=== PATIENT | male | born 1960 | race African-American/Black ===

== ENCOUNTER 2017-09-20 08:55 | Emergency (ER) | payer SELFPAY ==
[~2017-09-20] VITALS: Ht 165.1 cm; Wt 61.0 kg
[2017-09-20] MEDS ORDERED: KETOROLAC 60MG/2ML VIAL IM ONE (14:00)
[2017-09-20 14:27] VITALS: BP 162/74
== END 2017-09-20 14:24 | disposition home or self-care (01) ==
LOC: ER 09:19
DX: M25.512 Pain in left shoulder (principal); W01.0XXA Fall on same level from slipping, tripping and stumbling without subsequent striking against object, initial encounter; Z91.81 History of falling; Y93.89 Activity, other specified; Y92.89 Other specified places as the place of occurrence of the external cause; Y99.0 Civilian activity done for income or pay
CPT/HCPCS: 73030; 99284; A4565

== ENCOUNTER 2018-03-17 18:29 | Emergency (ER) | payer SELFPAY ==
[~2018-03-17] VITALS: Ht 170.2 cm; Wt 60.0 kg
[2018-03-17] MEDS ORDERED: LEVETIRACETAM 500MG PREMIX 100 ML IV ONE (19:15)
[2018-03-17 20:47] LABS: BASOPHILS % 0.4 % (0.0-2.0); EOSINOPHILS % 0.8 % (0.0-5.0); HEMOGLOBIN. 15.2 g/dL (14.0-18.0); LYMPHOCYTES % 27.7 % (20.0-50.0); MEAN CORPUSCULAR HEMOGLOBIN 27.2 pg (28.0-32.0); MEAN CORPUSCULAR VOLUME 82.2 fL (80.0-94.0); MEAN PLATELET VOLUME 9.1 fl (7.4-10.4); MONOCYTES % 7.5 % (2.0-8.0); NEUTROPHILS % 63.6 % (40.0-76.0); PLATELET 287 x1000/uL (130-400); RED BLOOD CELL COUNT 5.59 mill/uL (4.7-6.1); RED CELL DISTRIBUTION WIDTH 16.2 % (11.6-14.6)
[2018-03-17 20:53] LABS: CHLORIDE 102 mEq/L (98-107)
[2018-03-17 20:58] LABS: PARTIAL THROMBOPLASTIN TIME 27.3 sec (23.4-31.0); PROTHROMBIN TIME 9.9 sec (9.1-11.1)
[2018-03-17] MEDS ORDERED: DEXAMETHASONE 10 MG/ML VIAL IV ONE (21:30)
[2018-03-17 23:57] VITALS: BP 127/67
== END 2018-03-18 00:25 | disposition short-term general hospital (02) ==
LOC: ER 20:09 → CANBEDREQ 03-18 01:20
DX: G93.9 Disorder of brain, unspecified (principal); R53.1 Weakness; R60.0 Localized edema; M19.90 Unspecified osteoarthritis, unspecified site; Z87.891 Personal history of nicotine dependence
CPT/HCPCS: 36415; 70450; 71045; 80053; 84484; 85025; 85610; 85730; 93005; 96365; 96375; 99291; J1100; J1953

== ENCOUNTER 2022-10-01 11:59 | Inpatient (IN) | payer OTHER ==
[2022-10-01] VITALS (38 sets, daily range): BP systolic 85–132; BP diastolic 28–79
[~2022-10-01] VITALS: Ht 162.6 cm; Wt 44.9 kg
[2022-10-01] MEDS ORDERED: PIPERACILLIN/TAZ 3.375G PREMIX 50 ML IV ONE (12:15)
[2022-10-01] MEDS ORDERED: VANCOMYCIN 1G PREMIX 200 ML IV ONE (12:15)
[2022-10-01] MEDS ORDERED: SODIUM CHLORIDE 0.9% 1000ML BAG (SEPSIS BOLUS) IV ONE (12:15)
[2022-10-01 12:42] LABS: HEMATOCRIT. 35.3 % (42.0-52.0); MEAN CORPUSCULAR HEMOGLOBIN 27.8 pg (28.0-32.0); MEAN CORPUSCULAR VOLUME 81.9 fL (80.0-94.0); PLATELET 474 x1000/uL (130-400)
[2022-10-01 12:43] LABS: CLARITY URINE CLOUDY (CLEAR); COLOR URINE YELLOW (YELLOW); KETONES URINE 1+ (NEGATIVE); LEUKOCYTE ESTERASE URINE NEGATIVE (NEGATIVE); NITRITE URINE NEGATIVE (NEGATIVE); OCCULT BLOOD URINE 2+ (NEGATIVE); PH URINE 6.5 (4.5-8.0); PROTEIN URINE 2+ (NEGATIVE); SPECIFIC GRAVITY URINE 1.015 (1.005-1.030)
[2022-10-01] MEDS ORDERED: FENTANYL 2500MCG/250ML PMX 250 ML IV ONE ×2 (12:45)
[2022-10-01] MEDS ORDERED: FENTANYL CITRATE/PF 50MCG/ML 2ML VIAL IV ONE (12:45)
[2022-10-01] MEDS ORDERED: MIDAZOLAM HCL 100 MG in DEXT 5% WATER 80 ML IV ONE (12:45)
[2022-10-01] MEDS ORDERED: MIDAZOLAM HCL 100 MG in SODIUM CHLORIDE 0.9% 100 ML IV PRN (12:45)
[2022-10-01] MEDS ORDERED: ETOMIDATE 2MG/ML 10ML VIAL IV ONE (12:45)
[2022-10-01] MEDS ORDERED: SUCCINYLCHOLINE CHLORIDE 200MG/10ML IV ONE (12:45)
[2022-10-01 12:51] LABS: PROTHROMBIN TIME 10.5 sec (9.6-11.0)
[2022-10-01 13:06] LABS: BG BASE EXCESS -0.3 mmol/L (-2.0-2.0); BG DEOXYHEMOGLOBIN 1.2 % (0.0-5.0); BG FRACTION INSPIRED OXYGEN 100; BG HCO3 ACT 28.4 mmol/L (22.0-26.0); BG METHEMOGLOBIN 0.1 % (0.0-1.5); BG OXYGEN SATURATION 98.8 % (92.0-98.5); BG OXYHEMOGLOBIN 98.7 % (94.0-97.0); BG PCO2 69.1 mmHg (35.0-45.0); BG PH 7.232 (7.350-7.450); BG PO2 168.6 mmHg (75.0-100.0); BG SAMPLE SITE RIGHT RADIAL; BG TOTAL RESPIRATORY RATE 26 b/min; BG VENT MODE VENT - AC
[2022-10-01 13:18] LABS: PLATELET ESTIMATE INCREASED
[2022-10-01 13:28] LABS: CHLORIDE 97 mEq/L (98-107)
[2022-10-01] MEDS ORDERED: NOREPINEPHRINE 8MG/250ML PMX 250 ML IV STA (13:57)
[2022-10-01] MEDS ORDERED: ACETAMINOPHEN 325MG TABLET PO PRN (14:15)
[2022-10-01] MEDS ORDERED: DOCUSATE SODIUM 100MG CAPSULE PO PRN (14:15)
[2022-10-01] MEDS ORDERED: ONDANSETRON HCL 4MG/2ML INJ IV PRN (14:15)
[2022-10-01] MEDS ORDERED: IPRATROPIUM/ALBUTEROL 0.5-3(2.5)MG/3ML NEB HHN PRN (14:45)
[2022-10-01] MEDS ORDERED: MIDAZOLAM HCL 100 MG in SODIUM CHLORIDE 0.9% 80 ML IV PRN (15:00)
[2022-10-01] MEDS ORDERED: NOREPINEPHRINE 32 MG in DEXT 5% WATER 218 ML IV PRN (15:00)
[2022-10-01] MEDS ORDERED: FENTANYL 2500MCG/250ML PMX 250 ML IV PRN (15:00)
[2022-10-01 16:51] LABS: BG BASE EXCESS 6.6 mmol/L (-2.0-2.0); BG CARBOXYHEMOGLOBIN 0.3 % (0.5-1.5); BG DEOXYHEMOGLOBIN 2.1 % (0.0-5.0); BG FRACTION INSPIRED OXYGEN 80; BG METHEMOGLOBIN 0.2 % (0.0-1.5); BG OXYGEN SATURATION 97.9 % (92.0-98.5); BG OXYHEMOGLOBIN 97.4 % (94.0-97.0); BG PCO2 38.6 mmHg (35.0-45.0); BG PH 7.509 (7.350-7.450); BG PO2 97.7 mmHg (75.0-100.0); BG SAMPLE SITE RIGHT RADIAL; BG TOTAL HEMOGLOBIN 10.7 g/dL (12.0-18.0); BG VENT MODE VENT - AC
[2022-10-01] MEDS: PANTOPRAZOLE SODIUM 40 MG/VIAL IV SCH (17:38)
[2022-10-01] MEDS: DEXT 5%/0.45% NACL 1000ML 1,000 ML IV SCH (17:39)
[2022-10-01] MEDS: ENOXAPARIN 30MG/0.3ML SYR SUBCUT SCH (17:39)
[2022-10-01] MEDS ORDERED: PIPERACILLIN/TAZOBACTAM 3.375 G in DEXTROSE 5% WATER 50 ML IV SCH (20:00)
[2022-10-01] MEDS: IPRATROPIUM/ALBUTEROL 0.5-3(2.5)MG/3ML NEB HHN SCH (20:41)
[2022-10-01] MEDS: PIPERACILLIN/TAZOBACTAM 3.375 G in DEXTROSE 5% WATER 50 ML IV SCH (22:05)
[2022-10-01] MEDS ORDERED: VANCOMYCIN 750MG PREMIX 150 ML IV SCH (23:00)
[2022-10-01] MEDS: VANCOMYCIN 750MG PREMIX 150 ML IV SCH (23:56)
[2022-10-02] VITALS (96 sets, daily range): BP systolic 76–133; BP diastolic 36–98
[2022-10-02] MEDS: IPRATROPIUM/ALBUTEROL 0.5-3(2.5)MG/3ML NEB HHN SCH ×4 (02:10→20:39)
[2022-10-02] MEDS: NOREPINEPHRINE 32 MG in DEXT 5% WATER 218 ML IV PRN (02:30)
[2022-10-02] MEDS: DEXT 5%/0.45% NACL 1000ML 1,000 ML IV SCH ×2 (03:42→17:39)
[2022-10-02] MEDS: MIDAZOLAM HCL 100 MG in SODIUM CHLORIDE 0.9% 80 ML IV PRN (04:28)
[2022-10-02 06:06] LABS: BASOPHILS % 0.3 % (0.0-2.0); EOSINOPHILS % 0.1 % (0.0-5.0); HEMATOCRIT. 28.5 % (42.0-52.0); HEMOGLOBIN. 9.5 g/dL (14.0-18.0); LYMPHOCYTES % 13.4 % (20.0-50.0); MEAN CORPUSCULAR HEMOGLOBIN 27.1 pg (28.0-32.0); MEAN PLATELET VOLUME 7.9 fl (7.4-10.4); MONOCYTES % 8.2 % (2.0-8.0); PLATELET 415 x1000/uL (130-400); RED BLOOD CELL COUNT 3.51 mill/uL (4.7-6.1); RED CELL DISTRIBUTION WIDTH 15.4 % (11.6-14.6)
[2022-10-02] MEDS: PIPERACILLIN/TAZOBACTAM 3.375 G in DEXTROSE 5% WATER 50 ML IV SCH ×3 (06:20→22:28)
[2022-10-02 06:51] LABS: CHLORIDE 101 mEq/L (98-107)
[2022-10-02 07:04] LABS: HDL CHOLESTEROL 68 mg/dL (40-59); LDL CHOLESTEROL 48 mg/dL (5-100)
[2022-10-02] MEDS: PANTOPRAZOLE SODIUM 40 MG/VIAL IV SCH (08:28)
[2022-10-02 08:38] LABS: BG BASE EXCESS 7.1 mmol/L (-2.0-2.0); BG CARBOXYHEMOGLOBIN 0.3 % (0.5-1.5); BG DEOXYHEMOGLOBIN 0.6 % (0.0-5.0); BG FRACTION INSPIRED OXYGEN 70; BG HCO3 ACT 30.1 mmol/L (22.0-26.0); BG METHEMOGLOBIN 0.3 % (0.0-1.5); BG OXYGEN SATURATION 99.4 % (92.0-98.5); BG OXYHEMOGLOBIN 98.8 % (94.0-97.0); BG PCO2 36.8 mmHg (35.0-45.0); BG PH 7.531 (7.350-7.450); BG SAMPLE SITE RIGHT RADIAL; BG TOTAL HEMOGLOBIN 10.4 g/dL (12.0-18.0); BG TOTAL RESPIRATORY RATE 22 b/min; BG VENT MODE VENT - AC
[2022-10-02] MEDS ORDERED: POTASSIUM CHLORIDE INJ 40 MEQ in DEXT 5% WATER 250 ML IV ONE ×2 (10:30→13:15)
[2022-10-02] MEDS: VANCOMYCIN 750MG PREMIX 150 ML IV SCH ×2 (10:49→23:07)
[2022-10-02] MEDS: KCL 20MEQ/100ML X 2 FOR TOTAL KCL 40MEQ/200ML IV SCH ×4 (10:49→17:39)
[2022-10-02] MEDS: ENOXAPARIN 30MG/0.3ML SYR SUBCUT SCH (15:30)
[2022-10-02] MEDS ORDERED: FENTANYL 2500MCG/250ML PMX 250 ML IV PRN (23:30)
[2022-10-03] VITALS (97 sets, daily range): BP systolic 57–180; BP diastolic 31–103
[2022-10-03] MEDS: IPRATROPIUM/ALBUTEROL 0.5-3(2.5)MG/3ML NEB HHN SCH ×5 (01:43→20:54)
[2022-10-03] MEDS: NOREPINEPHRINE 32 MG in DEXT 5% WATER 218 ML IV PRN (02:42)
[2022-10-03] MEDS: MIDAZOLAM HCL 100 MG in SODIUM CHLORIDE 0.9% 80 ML IV PRN (02:43)
[2022-10-03 06:04] LABS: CHLORIDE 101 mEq/L (98-107)
[2022-10-03 06:05] LABS: BASOPHILS % 0.1 % (0.0-2.0); EOSINOPHILS % 0.3 % (0.0-5.0); HEMATOCRIT. 26.8 % (42.0-52.0); HEMOGLOBIN. 9.2 g/dL (14.0-18.0); LYMPHOCYTES % 8.6 % (20.0-50.0); MEAN CORPUSCULAR HEMOGLOBIN 27.6 pg (28.0-32.0); MEAN CORPUSCULAR VOLUME 80.5 fL (80.0-94.0); MEAN PLATELET VOLUME 7.2 fl (7.4-10.4); MONOCYTES % 8.5 % (2.0-8.0); NEUTROPHILS % 82.5 % (40.0-76.0); PLATELET 434 x1000/uL (130-400); RED BLOOD CELL COUNT 3.32 mill/uL (4.7-6.1); RED CELL DISTRIBUTION WIDTH 15.3 % (11.6-14.6)
[2022-10-03] MEDS: PIPERACILLIN/TAZOBACTAM 3.375 G in DEXTROSE 5% WATER 50 ML IV SCH ×3 (06:42→22:33)
[2022-10-03] MEDS: DEXT 5%/0.45% NACL 1000ML 1,000 ML IV SCH ×2 (06:42→20:08)
[2022-10-03 08:24] LABS: BG BASE EXCESS 8.7 mmol/L (-2.0-2.0); BG CARBOXYHEMOGLOBIN 0.3 % (0.5-1.5); BG FRACTION INSPIRED OXYGEN 40; BG METHEMOGLOBIN 0.3 % (0.0-1.5); BG OXYHEMOGLOBIN 98.4 % (94.0-97.0); BG PCO2 50.8 mmHg (35.0-45.0); BG PH 7.443 (7.350-7.450); BG PO2 162.2 mmHg (75.0-100.0); BG SAMPLE SITE RIGHT RADIAL; BG TOTAL HEMOGLOBIN 9.8 g/dL (12.0-18.0); BG VENT MODE VENT - AC
[2022-10-03] MEDS: PANTOPRAZOLE SODIUM 40 MG/VIAL IV SCH (09:25)
[2022-10-03] MEDS: VANCOMYCIN 500MG PREMIX 100 ML IV SCH ×2 (11:02→18:11)
[2022-10-03 13:19] LABS: BG BASE EXCESS 8.5 mmol/L (-2.0-2.0); BG CARBOXYHEMOGLOBIN 0.3 % (0.5-1.5); BG DEOXYHEMOGLOBIN 1.1 % (0.0-5.0); BG FRACTION INSPIRED OXYGEN 40; BG HCO3 ACT 33.7 mmol/L (22.0-26.0); BG OXYGEN SATURATION 98.9 % (92.0-98.5); BG OXYHEMOGLOBIN 98.6 % (94.0-97.0); BG PCO2 49.7 mmHg (35.0-45.0); BG PH 7.449 (7.350-7.450); BG PO2 150.5 mmHg (75.0-100.0); BG SAMPLE SITE RIGHT RADIAL; BG TOTAL HEMOGLOBIN 10.6 g/dL (12.0-18.0); BG VENT MODE VENT - CPAP
[2022-10-03] MEDS: ENOXAPARIN 30MG/0.3ML SYR SUBCUT SCH (14:47)
[2022-10-03] MEDS ORDERED: THROAT LOZENGES-BENZOCAINE/MENTH/CETYLPYRD CL LOZENGES MM PRN (16:30)
[2022-10-03] MEDS ORDERED: CHOL100046 (19:14)
[2022-10-03] MEDS ORDERED: BACL-141 MT (19:14)
[2022-10-03] MEDS ORDERED: IPRA3AMP9 HHN (19:14)
[2022-10-03] MEDS ORDERED: AMLO10TA4 MT (19:14)
[2022-10-03] MEDS ORDERED: ALBU2.5V13 NEB (19:14)
[2022-10-03] MEDS ORDERED: DULO60CA64 MT (19:26)
[2022-10-03] MEDS: DULOXETINE HCL 60MG DR CAPSULE PO SCH (20:37)
[2022-10-03] MEDS: BACLOFEN 10MG TABLET PO SCH (22:53)
[2022-10-04] VITALS (62 sets, daily range): BP systolic 60–169; BP diastolic 28–98
[2022-10-04] MEDS: VANCOMYCIN 500MG PREMIX 100 ML IV SCH ×4 (00:59→22:23)
[2022-10-04] MEDS: IPRATROPIUM/ALBUTEROL 0.5-3(2.5)MG/3ML NEB HHN SCH ×4 (02:01→20:19)
[2022-10-04 05:25] LABS: BASOPHILS % 0.5 % (0.0-2.0); EOSINOPHILS % 0.7 % (0.0-5.0); HEMATOCRIT. 27.8 % (42.0-52.0); HEMOGLOBIN. 9.4 g/dL (14.0-18.0); LYMPHOCYTES % 12.1 % (20.0-50.0); MEAN CORPUSCULAR HEMOGLOBIN 27.3 pg (28.0-32.0); MEAN PLATELET VOLUME 7.7 fl (7.4-10.4); MONOCYTES % 8.6 % (2.0-8.0); NEUTROPHILS % 78.1 % (40.0-76.0); PLATELET 434 x1000/uL (130-400); RED BLOOD CELL COUNT 3.43 mill/uL (4.7-6.1); RED CELL DISTRIBUTION WIDTH 15.6 % (11.6-14.6)
[2022-10-04 05:36] LABS: CHLORIDE 98 mEq/L (98-107)
[2022-10-04] MEDS: PIPERACILLIN/TAZOBACTAM 3.375 G in DEXTROSE 5% WATER 50 ML IV SCH ×3 (06:11→22:24)
[2022-10-04] MEDS: BACLOFEN 10MG TABLET PO SCH ×3 (06:12→22:24)
[2022-10-04] MEDS: DEXT 5%/0.45% NACL 1000ML 1,000 ML IV SCH (08:13)
[2022-10-04] MEDS: PANTOPRAZOLE SODIUM 40 MG/VIAL IV SCH (08:13)
[2022-10-04] MEDS ORDERED: ZOLPIDEM TARTRATE 5MG TABLET PO PRN (08:30)
[2022-10-04] MEDS ORDERED: HEPARIN 100 UNITS/1 ML VIAL IVF PRN (09:30)
[2022-10-04] MEDS: POTASSIUM CHLORIDE 20MEQ TABLET SR PO SCH (09:44)
[2022-10-04] MEDS ORDERED: ACETYLCYSTEINE 200MG/ML 20% VIAL 10ML INH SCH (12:00)
[2022-10-04] MEDS: ACETYLCYSTEINE 200MG/ML 20% VIAL 4ML INH SCH (14:25)
[2022-10-04] MEDS: ENOXAPARIN 30MG/0.3ML SYR SUBCUT SCH (15:40)
[2022-10-04] MEDS: DULOXETINE HCL 60MG DR CAPSULE PO SCH (21:12)
[2022-10-04] MEDS ORDERED: ACETYLCYSTEINE 200MG/ML 20% VIAL 4ML INH SCH (22:00)
[2022-10-05] VITALS (34 sets, daily range): BP systolic 95–156; BP diastolic 39–84
[2022-10-05] MEDS: ACETYLCYSTEINE 200MG/ML 20% VIAL 4ML INH SCH ×3 (02:17→15:37)
[2022-10-05] MEDS: IPRATROPIUM/ALBUTEROL 0.5-3(2.5)MG/3ML NEB HHN SCH ×4 (02:17→20:59)
[2022-10-05 05:38] LABS: BASOPHILS % 0.2 % (0.0-2.0); EOSINOPHILS % 0.4 % (0.0-5.0); HEMATOCRIT. 26.2 % (42.0-52.0); HEMOGLOBIN. 8.9 g/dL (14.0-18.0); LYMPHOCYTES % 10.7 % (20.0-50.0); MEAN CORPUSCULAR HEMOGLOBIN 27.3 pg (28.0-32.0); MEAN CORPUSCULAR VOLUME 80.2 fL (80.0-94.0); MEAN PLATELET VOLUME 7.1 fl (7.4-10.4); MONOCYTES % 8.9 % (2.0-8.0); NEUTROPHILS % 79.8 % (40.0-76.0); PLATELET 474 x1000/uL (130-400); RED BLOOD CELL COUNT 3.27 mill/uL (4.7-6.1); RED CELL DISTRIBUTION WIDTH 15.4 % (11.6-14.6)
[2022-10-05 05:40] LABS: CHLORIDE 98 mEq/L (98-107)
[2022-10-05] MEDS: VANCOMYCIN 500MG PREMIX 100 ML IV SCH ×3 (06:22→20:54)
[2022-10-05] MEDS: PIPERACILLIN/TAZOBACTAM 3.375 G in DEXTROSE 5% WATER 50 ML IV SCH ×3 (06:22→20:54)
[2022-10-05] MEDS: BACLOFEN 10MG TABLET PO SCH ×3 (06:23→20:54)
[2022-10-05] MEDS: POTASSIUM CHLORIDE 20MEQ TABLET SR PO SCH (09:13)
[2022-10-05] MEDS: PANTOPRAZOLE SODIUM 40 MG/VIAL IV SCH (09:13)
[2022-10-05] MEDS ORDERED: POTASSIUM CHLORIDE 20MEQ TABLET SR PO SCH (10:15)
[2022-10-05] MEDS: ENOXAPARIN 30MG/0.3ML SYR SUBCUT SCH (15:59)
[2022-10-05] MEDS: DULOXETINE HCL 60MG DR CAPSULE PO SCH (20:54)
== END 2022-10-05 22:25 | disposition short-term general hospital (02) | DRG 871 ==
LOC: ER 11:59 → CVICU 13:37 → EDBEDREQ 13:39 → ENRESERV 13:46
PROVIDERS: ADMIT Hospitalist; ATTEND Hospitalist
PROC: 0BH17EZ Insertion of Endotracheal Airway into Trachea, Via Natural or Artificial Opening (ICD-10-PCS; 2022-10-01)
PROC: 5A1945Z Respiratory Ventilation, 24-96 Consecutive Hours (ICD-10-PCS; 2022-10-01)
PROC: 5A09457 Assistance with Respiratory Ventilation, 24-96 Consecutive Hours, Continuous Positive Airway Pressure (ICD-10-PCS; principal; 2022-10-03)
PROC: 02HV33Z Insertion of Infusion Device into Superior Vena Cava, Percutaneous Approach (ICD-10-PCS; 2022-10-04)
DX: A41.9 Sepsis, unspecified organism (principal); E43 Unspecified severe protein-calorie malnutrition; J18.9 Pneumonia, unspecified organism; J96.02 Acute respiratory failure with hypercapnia; J96.01 Acute respiratory failure with hypoxia; Z68.1 Body mass index [BMI] 19.9 or less, adult; G93.40 Encephalopathy, unspecified; Z20.822 Contact with and (suspected) exposure to COVID-19; I10 Essential (primary) hypertension; D63.8 Anemia in other chronic diseases classified elsewhere
CPT/HCPCS: 31500; 36415; 36573; 36600; 71045; 80048; 80053; 80061; 80202; 81003; 82375; 82805; 83605; 83735; 84145; 84484; 85025; 87070; 87426; 87804; 93005; 93970; 94002; 94003; 94640; 94660; 94667; 97162; 99291; C1725; C9113; C9803; J1650; J2250; J2543; J3010; J3370; J3480; J3490; J7030; J7050; J7060; J7608; A4315